=== PATIENT | female | born 1980 | race Caucasian/White ===

== ENCOUNTER → 2017-06-06 | Outpatient (CLI) | payer OTHER ==
[~2017-06-06] MED LIST: CHOL400T PO; DPPI400 IM; HYDR-5688 PO; MULT-859 PO; MULTTAB58 PO; POTASSIUM PO; RIZA10TA18 PO; VITACAP26 PO; ZNTT/150 PO
--- NOTE | 2017-06-07 05:42 | PAP/PSG TECHNICIAN REPORT ---
[facility] [employer] Operator Polysomnogram Report Study name: None Report date: 06/07/2017 Study date: 06/06/2017 Referring Physician: DUKE CHAND Name: ISAAK SULLIVAN Interpreting Physician: Ramiro Newman M.D. 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 Sex: Female Age: 36 StudyType: PSG Weight: 134 lbs Height: 36 years, Height 5' 2" Neck Circum:12.75in. BMI: 24.51 Medications: Bupropion HCl 300mg, Medroxyprogesterone 150mg injection, Melatonin 3mg, Prazosin HCL 1mg, Ranitidine HCl 150mg, Risperidone 2mg Patient History Study started on room air with no ETCO2 monitoring in room #8. 36 yr old female here tonight for a diagnostic psg. She works second shift and her she tries to sleep between 2am and 9am. She has been having sleep problems since she got back from [place]. She has problems with sleep onset and sleep maintenance insomnia. Her father and sister have RAUL. She does not think she snores but has been told that she breathes heavily. She is a smoker. Her ESS=3/24. Her neck circ=12.75inches. Parameters Monitored NPSG: E1-M2, E2-M1, Fp1-M2, Fp2-M1, F3-M2, F4-M2, F4-M1, C3-M2, C4-M2, C4-M1, O1-M2, O2-M2, O2-M1, T3-M2, T4-M1, P3-M2, P4-M1, CHIN1, CHIN2, HR, EKG, Legs, PFLOW, SNOR, FLOW, CFLOW, Tidal Volume, THOR, ABDO, SpO2, PLTH, CPRESS, ETCO2 Wave, ETCO2, pH Sleep Architecture Sleep Stages Time at Lights Off 10:54:48 PM STAGES Time (min.) TST (%) Time at Lights On 5:33:18 AM Wake 149.0 -- Total Recording Time (TRT) 398.50 min. N1 23.5 9 Total Sleep Period (TSP) 257.0 min. N2 128.0 51 Total Sleep Time (TST) 249.5min. N3 61.5 25 Awake Time 149.0 min. REM 36.5 15 Wake after Sleep Onset 8.5 min. Sleep Efficiency (SE) 63 % Sleep Onset Latency (ROJELIO) 140.5 min. Number of Stage 1 Shifts None Awakenings 11 Stage Changes 64 Number of REM periods 4 REM 36.5 15 REM Latency 89.5 min. NREM 213.0 85 Body Position Analysis Supine Right Left Side Prone Vertical Total Sleep Time (min.) 293.1 49.7 0.0 49.74 0.0 0.0 Total Sleep Time (%) 80% 20% 0% 20 0% N/A% Total Sleep Time REM (min.) 36.5 0.0 0.0 None 0.0 0.0 Total Sleep Time NREM (min.) 163.3 49.7 0.0 None 0.0 0.0 Intermittent Wake (min.) 93.3 9.6 46.1 None 0.0 0.0 Total Sleep Period (%) 79% None None None None None Arousals Myoclonus (PLM) * Events Count Index Events Count Index Spontaneous 18 4 Events Awake (PLMW) 180 72.5 Respiratory 0 0.0 Events Asleep w/ Arousal (PLMA) 4 1.0 PLM 4 1 Events Asleep w/o Arousal (PLMS) 24 5.8 Snoring 10 2 Total Asleep 28 6.7 Total 31 7 Total 208 31 Respiratory Analysis * CA OA MA CH H RERA Total Count 1 0 0 0 0 0 1 Index 0.2 0.0 0.0 0 0.0 0 0.2 Mean Duration 14.6 0.0 0.0 0.00 0.0 0.0 14.6 Longest Duration 14.6 0.0 0.0 0.00 0.0 0.0 14.6 Respiratory Event Summary Total Supine ~Supine Right Left Prone REM NREM Apneas Count 1 1 0 0 N/A N/A 0 1 Index 0.2 0 0 0.0 N/A N/A 0 0 Hypopneas (4% Desat) Count 0 0 0 0 N/A N/A 0 0 Index 0.0 0.0 0 0.0 N/A N/A 0.0 0.0 Apneas & All Hypopneas Count 1 1 0 0 N/A N/A 0 1 Index 0.2 0 0 0 N/A N/A 0.0 0.3 Respiratory Events (Diamond Cleaner+All Hyp+RERA) Count 1 1 0 0 N/A N/A 0 1 Index 0.2 0 0 0.0 N/A N/A 0.0 0.3 Respiratory Related Arousal Count 0 1 0 0 N/A N/A 0 0 Index 0.0 0 0 0 N/A N/A 0 0 Snoring Analysis Supine Right Left Prone REM NREM Total Snore duration 17.5 min Snores count 707 197 N/A N/A 93 811 904 Snore mean duration 1.2 Sec Snores index 212 238 N/A N/A 152.9 228.5 217.4 TST with snoring (%) 7.0% Desaturation Event Summary: Minimum %SpO2 Event Count Mean/Min/Max Duration(sec.) Desaturation Index % Time In Bed > 90 1 13.8 / 13.8 / 13.8 0.2 100.0 86 - 90 0 N/A 0.0 0.0 81 - 85 0 N/A 0.0 0.0 76 - 80 0 N/A 0.0 0.0 71 - 75 0 N/A 0.0 0.0 66 - 70 0 N/A 0.0 0.0 61 - 65 0 N/A 0.0 0.0 56 - 60 0 N/A 0.0 0.0 51 - 55 0 N/A 0.0 0.0 < 50 0 N/A 0.0 0.0 Total REM NREM Awake <50% 0.0 min. 0.0 min. 0.0 min. 0.0 min. 51 - 60% 0.0 min. 0.0 min. 0.0 min. 0.0 min. 61 - 70% 0.0 min. 0.0 min. 0.0 min. 0.0 min. 71 - 80% 0.0 min. 0.0 min. 0.0 min. 0.0 min. 81 - 90% 0.0 min. 0.0 min. 0.0 min. 0.0 min. 91 - 100% 398.0 min. 36.5 min. 213.0 min. 148.5 min. Average 96 96 96 97 Minimum SpO2 93 93 94 94 Desaturation Event Index 0.2 0.0 0.0 0.4 # Desat. 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 Sullivan slept in the right and supine positions. No cardiac arrhythmia noted. Some leg movements were noted. No bruxism noted. Snoring was noted and scored as a 2 on a scale of 1 through 5. (0=no snoring, 5=snoring loud enough to be heard through a closed door or down the boogie way) She did not use the restroom during the night. She stated that she slept about the same as usual. The final report will be interpreted and signed by a sleep physician. The completed physician report will then be placed in the patient medical record. Therapy (cm H2O) 0 TIB (min.) 398.5 TST (min.) 249.5 Sleep Onset (min.) 140.5 REM Onset From Sleep (min.) 89.5 Sleep Efficiency % 63 Wakefulness (%) 37 Wakefulness (min.) 149.0 NREM 1 (%) 9 NREM 1 (min.) 23.5 NREM 2 (%) 51 NREM 2 (min.) 128.0 NREM 3 (%) 25 NREM 3 (min.) 61.5 REM (%) 15 REM (min.) 36.5 # Arousals 31 Arousal Index 7 # Snore 904 Snore Index 217.4 AHI 0.2 AHI Supine 0 AHI Non-Supine 0 NREM AHI 0.3 REM AHI 0.0 RDI 0.2 # Obstructive Apnea 0 # Central Apnea 1 # Mixed Apnea 0 # Hypopneas 0 RERAs 0 Total Respiratory Events 1 Time Below SpO2 89% (min.) 0.0 Mean NREM SpO2 (%) 96 Mean REM SpO2 (%) 96 Mean Sleep SpO2 (%) 96 Min NREM SpO2 (%) 94 Min REM SpO2 (%) 93 Position Supine (min.) 293.1 Position Non-supine (min.) 49.7 LM Index Sleep 6.7 LM Index NREM 6.8 LM Index REM 6.6 Mean Heart Rate (bpm) 82 Min Heart Rate (bpm) 63
--- NOTE | 2017-06-07 11:26 | POLYSOMNOGRAPH REPORT ---
CLINICAL DATA: A 36-year-old female with BMI of 24.5 referred by JAGRUTI Wade for evaluation of sleep disorders. 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 and 9:00 a.m. She has been having sleep problems since she got back from [place]. She has difficulty with sleep onset and sleep maintenance insomnia. Her father and sister both have sleep apnea. She snores at night but does not think that she snores loudly. Her Hume Sleepiness Score was 3/24. SLEEP ARCHITECTURE: Total recording time was 398.5 minutes. Total sleep period was 257 minutes. Total sleep time was 249.5 minutes divided between 213 minutes of non-REM sleep and 36.5 minutes of REM sleep. Sleep onset latency was significantly delayed at 140.5 minutes. REM latency was 89.5 minutes. Sleep efficiency was 63%. Wake after sleep onset was 8.5 minutes. Sleep consisted of stage N1 9%, stage N2 51%, stage III 25%, and REM 15%. AROUSAL DATA: 31 arousals were recorded for an index of 7 per hour. PERIODIC LIMB MOVEMENTS DATA: No significant limb movements during sleep were noted. There were 28 limb movements during sleep noted for an index of 6.7 per hour with arousal index of 1 per hour. RESPIRATORY DATA: There was no evidence of clinically significant sleep apnea/hypopnea seen. The AHI was 0.2. There was 1 central apneic episode 14.6 seconds in duration. OXIMETRY DATA: No hypoxemia was seen. Oxygen winter was 93%. Mean saturation was 96%. EKG: Heart rates ranged from 63-109 beats per minute. No arrhythmias were noted. 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 Snoring was mild, rated 2 on a scale of 1-5. IMPRESSION: No evidence of clinically significant sleep apnea/hypopnea, nocturnal hypoxemia or abnormal limb movements during sleep to explain this patient's symptoms. 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 RECOMMENDATIONS: The patient should continue to practice good sleep hygiene. [facility]
== END | disposition home or self-care (01) ==
LOC: C.NEUR 20:00
PROVIDERS: ATTEND Nurse Practitioner Adult Health
DX: G47.8 Other sleep disorders (principal)

== ENCOUNTER 2018-04-19 20:00 | Emergency (ER) | payer OTHER ==
[~2018-04-19] VITALS: Ht 157.5 cm; Wt 63.5 kg
[~2018-04-19 20:00] MED LIST changes: +RANI150T85 PO; -ZNTT/150 PO
[2018-04-19 20:02] VITALS: PULSE 90; TEMP 36.6; O2SAT 96; Ht 157.5 cm; Wt 63.5 kg
[2018-04-19] MEDS ORDERED: LIDOCAINE 1% BUFFERED INJ 20 ML VIAL INFIL STA (20:12)
--- NOTE | 2018-04-19 20:55 | DIAGNOSTIC IMAGING REPORT ---
R FINGER(S) MIN 2 VIEWS ROUTINE HISTORY: 37 years-old Female R 5th digit shut in car door. Pain acute pain and swelling of the right fifth finger status post trauma COMPARISON: None available TECHNIQUE: 3 views of the right fifth finger FINDINGS: Mild soft tissue tissue swelling of the ulnar hand and fifth finger. No acute fracture, dislocation or opaque foreign body. IMPRESSION: Soft tissue swelling without fracture. The above report was generated using voice recognition software. It may contain grammatical, syntax or spelling errors. Electronically signed by: Tam Marion M.D. 04/19/2018 8:53 PM Dictated Date/Time: 04/19/2018 8:52 PM
[2018-04-19] MEDS ORDERED: NORCO 5/325MG HOME PACK PO STA (21:12)
--- NOTE | 2018-04-19 21:14 | EMERGENCY ROOM VISIT NOTE ---
ED Visit Note First contact with patient: 20:05 Chief Complaint: "Broken finger". History of Present Illness: This patient is a 37-year-old female who presents to the Emergency Department via private vehicle for evaluation of their left fifth digit distal crush injury. Patient sustained the injury when she accidentally shut the car door on her finger. They report a moderate amount of bleeding initially. They deny any numbness or tingling into the distal extremity. They report no decreased range of motion of the affected digit. Patient rates her current discomfort as a 10/10. Patient's Tetanus status is believed to be currently up-to-date. Medications: As noted below Allergies: Aspirin, cortisone, ibuprofen, NSAIDs PMH: No pertinent SHx: Patient is employed and lives locally. ROS: All pertinent positive and negative review of systems are appropriately documented in the History of Present Illness. Physical Exam: VITAL SIGNS - Vital signs and nursing notes were reviewed. Stable. GENERAL -37-year-old female appearing her stated age who is in no acute distress. Communicates well with provider and answers questions appropriately. SKIN - There is bleeding coming from the cuticle of the left fifth digit. No large break in integument. Upon further examination there are no deep structures including vessel, tendon, or bony structures appreciated. The finger to inspection looks appropriate. No deformity. There is no active bleeding noted. MUSCULOSKELETAL -injury +5/5 strength appreciated of the affected digit. Full range of motion of the affected digit. NEUROLOGIC - Spinothalamic tract was found to be intact with ability to discriminate sharp versus dull sensation. No sensory defects of the dorsal column were appreciated utilizing light touch for evaluation. VASCULAR - Capillary refill was brisk. IMAGING: R FINGER(S) MIN 2 VIEWS ROUTINE HISTORY: 37 years-old Female R 5th digit shut in car door. Pain acute pain and swelling of the right fifth finger status post trauma COMPARISON: None available TECHNIQUE: 3 views of the right fifth finger FINDINGS: Mild soft tissue tissue swelling of the ulnar hand and fifth finger. No acute fracture, dislocation or opaque foreign body. IMPRESSION: Soft tissue swelling without fracture. The above report was generated using voice recognition software. It may contain grammatical, syntax or spelling errors. Electronically signed by: Tam Marion M.D. 04/19/2018 8:53 PM Dictated Date/Time: 04/19/2018 8:52 PM ED Course: Patient was seen and evaluated by myself. Risks and benefits of performing primary wound closure versus no repair were discussed with the patient who verbalizes understanding. She noted she would like sending for pain, and with her allergies and given that she was going to be driving we are very limited. She requested a digital block. Verbal consent was obtained prior to performing the procedure. 3 cc of 1% buffered lidocaine without epinephrine was used to perform a digital block of the left fifth digit. The wound was cleansed and prepped in the typical sterile fashion utilizing normal saline and Betadine. The wound was sterilely draped. Once proper anesthetization was established, the wound was further examined and demonstrated no deep involvement. The wound was copiously irrigated with normal saline and Bet wound was extremely small in nature. At this time bacitracin dressing was applied with bandage and a finger splint to provide support. She verbalized concern over managing her pain over the next few days. For this reason I did give her a short prescription of [place]. She was educated upon risks, to include but not limited to refrain from Tylenol as well as driving with this medication. Patient educated on worrisome symptoms for return visit to the Emergency Department. Patient discharged to home in good condition. No red flags in the PDMP. In the evaluation and treatment of this patient, the following differential diagnoses were considered: Finger Fracture, Finger Dislocation, Finger Sprain, Finger Contusion, Jersey Finger, or Mallet Finger. Current/Historical Medications Scheduled Ascorbic Acid (Vitamin C), 500 MG PO DAILY B-Complex Vitamins (Vitamin B Complex), 1 TAB PO DAILY Bupropion Hcl (Bupropion Hcl Xl), 300 MG PO DAILY Buspirone Hcl (Buspirone Hcl), 10 MG PO BID Cholecalciferol (Vitamin D3), 1,000 INTER.UNIT PO DAILY Fish Oil ([place]-3), 1 CAP PO BID Levetiractam (Keppra), 250 MG PO BID Medroxyprogesterone Acetate (C (Medroxyprogesterone Aceta), 150 MG IM Q3MO Multiple Vitamins W/ Minerals (Womens Multi Vitamin & Mi), 1 TAB PO DAILY Omeprazole (Prilosec), 20 MG PO DAILY Potassium (Potassium), 99 MG PO DAILY Sertraline (Zoloft), 100 MG PO DAILY Scheduled PRN Cyclobenzaprine Hcl (Flexeril), 10 MG PO TID PRN for Muscle Spasm Hydrocodone/Acetaminophen 5MG/325MG ([place] 5MG/325MG), 1 TABLET PO Q6 PRN for Pain Rizatriptan Benzoate (Maxalt), 10 MG PO UD PRN for Migraine Allergies Coded Allergies: Aspirin (Verified Allergy, Severe, swelling, 04/19/18) Cortisone (Verified Allergy, Severe, swelling, 04/19/18) Ibuprofen (Verified Allergy, Severe, swelling, 04/19/18) NSAIDs (Verified Allergy, Severe, SWELLING, 04/19/18) Vital Signs Date Time Temp Pulse Resp B/P (MAP) Pulse Ox O2 Delivery O2 Flow Rate FiO2 04/19/18 21:48 115/83 04/19/18 20:02 36.6 90 18 123/82 96 Room Air Medications Administered Medications (Trade) Dose Ordered Sig/Paul Route Start Time Stop Time Status Last Admin Dose Admin Acetaminophen/ Hydrocodone Bitart ([place] 5/325mg Home Pack) 1 homepack UD STAT PO 04/19/18 21:12 04/19/18 21:14 DC 04/19/18 21:43 1 HOMEPACK Departure Information Impression Primary Impression: Crushed finger, distal Dispostion Home / Self-Care Condition GOOD Prescriptions Hydrocodone/Acetaminophen 5MG/325MG ([place] 5MG/325MG) Tab 1 TABLET PO Q6 Y for Pain, #9 TAB For Initial Treatment Prov: Aiden Lua PA-C 04/19/18 Referrals Ramiro Pacheco M.D. (PCP) Patient Instructions [facility] Additional Instructions Discharge Instructions: Please keep dressings on the finger for the next few days, Please wear the splint for comfort until the pain resolves Proper wound care is essential for adequate wound healing and infection prevention. You can shower and clean the wound with soap and water. Do not scour over the wound, pat dry with a towel. Do not submerse the wound (i.e. bathe or dish wash) until the sutures have been removed. You can use an antibiotic ointment with a dressing over the wound for the next 3-4 days. After this time you may leave the wound dry and open to the air. If crust develops over the wound you can use a Q-tip to apply a 1:1 peroxide:water solution to clean the wound. Look for signs of infection of the wound including: increased pain, swelling, foul discharge, streaking, or increased temperature. If any of these are noticed you should return to the Emergency Department for further assessment and treatment. As with any laceration you may have received nerve damage to the surrounding tissues. This damage may or may not be permanent. Please follow up with family doctor if pain persists beyond day 5 For pain control, you can use the following [id number] medicines (if >12 yo): - Regular strength (325mg/tab) Tylenol (acetaminophen) 2 tabs every 4-6 hours as needed. Do not exceed 12 tablets in a 24 hour period. Avoid taking more than 3 grams (3000 mg) of Tylenol per day. This includes any other sources of acetaminophen you may take on a regular basis. Return to the emergency department if your symptoms worsen despite treatment course outlined above.
[2018-04-19] MEDS ORDERED: CYCL10TA6 PO (21:43)
[2018-04-19] MEDS ORDERED: SERT50TA PO (21:43)
[2018-04-19] MEDS ORDERED: KPP/250 PO (21:43)
[2018-04-19] MEDS ORDERED: MULT-603 PO (21:43)
[2018-04-19] MEDS ORDERED: BUSP-8 PO (21:43)
[2018-04-19] MEDS ORDERED: BUPR300T43 PO (21:43)
[2018-04-19] MEDS ORDERED: B-COTAB18 PO (21:43)
[2018-04-19] MEDS ORDERED: OMEG10007 PO (21:43)
[2018-04-19] MEDS ORDERED: CHOL1CAP57 PO (21:43)
[2018-04-19] MEDS ORDERED: MEDR1INJ5 IM (21:43)
[2018-04-19] MEDS ORDERED: POTA99TA PO (21:43)
[2018-04-19] MEDS ORDERED: PRLSR20 PO (21:43)
[2018-04-19] MEDS ORDERED: ASCO500T3 PO (21:43)
[2018-04-19 21:48] VITALS: BP 115/83
[2018-04-19] MEDS ORDERED: HYDR-5688 PO (21:54)
== END 2018-04-19 21:49 | disposition home or self-care (01) ==
LOC: C.EDB 20:01 → C.EDD 21:49
DX: S67.197A Crushing injury of left little finger, initial encounter (principal); Z79.899 Other long term (current) drug therapy; Z88.6 Allergy status to analgesic agent; Z88.8 Allergy status to other drugs, medicaments and biological substances; W23.0XXA Caught, crushed, jammed, or pinched between moving objects, initial encounter